=== PATIENT | male | born 1945 | race Caucasian/White ===

== ENCOUNTER 2016-07-31 05:06 | Inpatient (IN) | payer OTHER, MEDICARE ==
[~2016-07-31] VITALS: Ht 177.8 cm; Wt 69.3 kg
[2016-07-31] VITALS (8 sets, daily range): BP systolic 128–160; BP diastolic 56–91
[~2016-07-31 05:06] MED LIST: ADULT LOW DOSE81 M1 PO; ALDACTONE25 MG PO; ASPIR 8181 M1 PO; ASPIRIN E.C.81 M1 PO; DIGOX125 MCG PO; DIGOXIN125 MCG PO; DIGOXIN250 MCG PO; ELIQUIS5 MG PO; FERROUS SULFAT325 MG PO; FUROSEMIDE20 MG PO; FUROSEMIDE80 MG PO; GLIPIZIDE5 MG PO; GLUCOPHAGE500 MG PO; HABITROL,NICODER7 MG TD; HYDROCODON-ACE1 EAC7 PO; IMDUR30 MG PO; IMDUR60 MG PO; ISOSORBIDE DINI30 MG PO; LASIX20 MG PO; LASIX40 MG PO; LEVAQUIN500 MG PO; LEVOFLOXACIN750 MG PO; METOPROLOL SUC100 MG PO; METOPROLOL SUCC25 MG PO; NITROSTAT,NITR0.4 M1 SL; NITROSTAT0.4 MG SL; NORVASC5 MG PO; PLAVIX75 MG PO; PRAVACHOL40 MG PO; PRAVACHOL80 MG PO; PRINIVIL20 MG PO; PROAIR HFA8.5 GM IH; SALINE NOSE SPR45 M1 BOTH NARES; SPIRIVA RESPIMAT4 GM IH; SPIRONOLACTONE25 MG PO; TOPROL XL100 MG PO; TOPROL XL50 MG PO; Toprol XL PO; Tums PO; ZESTRIL20 MG PO; ZOFRAN4 MG PO; Zantac PO; Zestril,Prinivil PO
[2016-07-31 06:49] LABS: POINT-OF-CARE METER ID UU14174212
[2016-07-31 15:10] LABS: METH RESISTANT S AUREUS PCR NEGATIVE (NEGATIVE)
[2016-07-31 15:19] LABS: PROBE CHECK PASS; SPECIMEN PROCESSING CONTROL PASS
[2016-07-31 18:12] LABS: HEMATOCRIT 40.9 % (38.0-50.0); MCH 30.2 PG (29.0-34.0); MCHC 34.2 G/DL (30.0-36.0); MCV 88.1 FL (86-99); MEAN PLAT.VOLUME 12.1 uM^3 (9.0-12.4); PLATELET COUNT 195 K/uL (156-360); RBC DIS.WIDTH-CV 15.7 % (11.8-14.6); RBC DIS.WIDTH-SD 50.7 % (39-53); RED BLOOD COUNT 4.64 M/uL (4.00-5.50)
[2016-07-31 18:15] LABS: WHITE BLOOD COUNT 15.8 K/uL (4.1-10.2)
[2016-07-31 18:29] LABS: ANION GAP 10 MEQ/L (2-14); CHLORIDE 104 MEQ/L (99-109); GFR ESTIMATE (CALCULATED) > 59 mL/min/; SAMPLE HEMOLYSIS CHECK 1; SAMPLE ICTERIC CHECK 0; SAMPLE LIPEMIA CHECK 0; SODIUM 133 MEQ/L (136-147); UREA NITROGEN (BUN) 21 mg/dL (9-23)
[2016-07-31 19:00] LABS: GLUCOSE 143 mg/dL (70-99); POTASSIUM 5.9 MEQ/L (3.7-5.4)
[2016-08-01] VITALS (14 sets, daily range): BP systolic 122–144; BP diastolic 53–75
[2016-08-01 06:16] LABS: HEMATOCRIT 37.7 % (38.0-50.0); MCH 29.9 PG (29.0-34.0); MCHC 33.4 G/DL (30.0-36.0); MCV 89.3 FL (86-99); MEAN PLAT.VOLUME 11.9 uM^3 (9.0-12.4); PLATELET COUNT 202 K/uL (156-360); RBC DIS.WIDTH-CV 15.9 % (11.8-14.6); RBC DIS.WIDTH-SD 51.6 % (39-53); RED BLOOD COUNT 4.22 M/uL (4.00-5.50); WHITE BLOOD COUNT 11.9 K/uL (4.1-10.2)
[2016-08-01 06:45] LABS: ANION GAP 7 MEQ/L (2-14); CHLORIDE 101 MEQ/L (99-109); GFR ESTIMATE (CALCULATED) > 59 mL/min/; GLUCOSE 138 mg/dL (70-99); POTASSIUM 5.5 MEQ/L (3.7-5.4); SAMPLE HEMOLYSIS CHECK 0; SAMPLE ICTERIC CHECK 0; SAMPLE LIPEMIA CHECK 0; SODIUM 130 MEQ/L (136-147); UREA NITROGEN (BUN) 24 mg/dL (9-23)
[2016-08-01 08:16] LABS: POINT-OF-CARE METER ID UU14174217
[2016-08-01 16:03] LABS: POINT-OF-CARE METER ID UU13113803
[2016-08-02] VITALS (13 sets, daily range): BP systolic 123–167; BP diastolic 55–83
[2016-08-02 06:35] LABS: ANION GAP 7 MEQ/L (2-14); CHLORIDE 103 MEQ/L (99-109); GFR ESTIMATE (CALCULATED) > 59 mL/min/; GLUCOSE 108 mg/dL (70-99); POTASSIUM 4.7 MEQ/L (3.7-5.4); SAMPLE HEMOLYSIS CHECK 0; SAMPLE ICTERIC CHECK 0; SAMPLE LIPEMIA CHECK 0; SODIUM 132 MEQ/L (136-147); UREA NITROGEN (BUN) 19 mg/dL (9-23)
[2016-08-03 03:19] VITALS: BP 160/82
[2016-08-03 09:15] VITALS: BP 169/89
[2016-08-03 13:14] VITALS: BP 169/91
[2016-08-03 19:15] VITALS: BP 169/85
[2016-08-03 23:18] VITALS: BP 162/89
[2016-08-04 04:20] VITALS: BP 144/95
[2016-08-04 06:01] LABS: ANION GAP 9 MEQ/L (2-14); CHLORIDE 98 MEQ/L (99-109); GFR ESTIMATE (CALCULATED) > 59 mL/min/; GLUCOSE 136 mg/dL (70-99); POTASSIUM 4.8 MEQ/L (3.7-5.4); SAMPLE HEMOLYSIS CHECK 0; SAMPLE ICTERIC CHECK 0; SAMPLE LIPEMIA CHECK 0; SODIUM 130 MEQ/L (136-147); UREA NITROGEN (BUN) 14 mg/dL (9-23)
[2016-08-04 06:12] LABS: MCH 29.4 PG (29.0-34.0); MCV 86.4 FL (86-99); MEAN PLAT.VOLUME 12.4 uM^3 (9.0-12.4); PLATELET COUNT 196 K/uL (156-360); RBC DIS.WIDTH-CV 15.2 % (11.8-14.6); RBC DIS.WIDTH-SD 47.9 % (39-53); RED BLOOD COUNT 4.05 M/uL (4.00-5.50)
[2016-08-04 06:15] LABS: WHITE BLOOD COUNT 7.9 K/uL (4.1-10.2)
[2016-08-04 07:30] VITALS: BP 143/100
[2016-08-04 12:00] VITALS: BP 163/73
[2016-08-04 17:20] VITALS: BP 158/82
[2016-08-04 19:11] VITALS: BP 160/92
[2016-08-04 23:33] VITALS: BP 152/81
[2016-08-05 04:20] VITALS: BP 142/85
[2016-08-05 06:53] LABS: EOSINOPHIL (%) 0.7 % (0-5); EOSINOPHIL COUNT 0.1 K/uL (0-0.3); HEMATOCRIT 32.6 % (38.0-50.0); IMMATURE GRANULOCYTE (%) 0.1 % (0.0-0.7); LYMPHOCYTE COUNT 0.7 K/uL (1.0-2.8); MCHC 35.3 G/DL (30.0-36.0); MCV 85.1 FL (86-99); MEAN PLAT.VOLUME 12.3 uM^3 (9.0-12.4); MONOCYTE COUNT 0.6 K/uL (0-0.8); NEUTROPHIL (%) 78.8 % (45-76); NEUTROPHIL COUNT 5.3 K/uL (1.8-6.4); PLATELET COUNT 181 K/uL (156-360); RBC DIS.WIDTH-CV 15.1 % (11.8-14.6); RED BLOOD COUNT 3.83 M/uL (4.00-5.50); WHITE BLOOD COUNT 6.8 K/uL (4.1-10.2)
[2016-08-05 07:27] LABS: ANION GAP 11 MEQ/L (2-14); CHLORIDE 102 MEQ/L (99-109); GFR ESTIMATE (CALCULATED) > 59 mL/min/; GLUCOSE 108 mg/dL (70-99); POTASSIUM 4.5 MEQ/L (3.7-5.4); SAMPLE HEMOLYSIS CHECK 0; SAMPLE ICTERIC CHECK 0; SAMPLE LIPEMIA CHECK 0; SODIUM 130 MEQ/L (136-147); UREA NITROGEN (BUN) 18 mg/dL (9-23)
[2016-08-05 07:40] VITALS: BP 170/91
[2016-08-05 12:06] VITALS: BP 159/86
[2016-08-05 16:45] VITALS: BP 144/82
[2016-08-05 19:37] VITALS: BP 136/75
[2016-08-05 23:00] VITALS: BP 157/74
[2016-08-06 04:45] VITALS: BP 144/73
[2016-08-06 07:50] VITALS: BP 173/79
[2016-08-06] MEDS ORDERED: NORCO 5/3251 TABLET PO (09:09)
[2016-08-06 10:32] VITALS: BP 145/75
[2016-08-06 12:43] VITALS: BP 142/70
[2016-08-06 19:00] VITALS: BP 137/78
[2016-08-06 23:00] VITALS: BP 133/73
[2016-08-07 03:50] VITALS: BP 139/68
[2016-08-07 07:20] VITALS: BP 165/74
[2016-08-07] MEDS ORDERED: FLOMAX0.4 MG PO (10:42)
== END 2016-08-07 10:10 | disposition home health service (06) | DRG 329 ==
LOC: 2SOUTH → 4WEST 05:11 → 2SOUTH 05:11 → 4EAST 05:11 → 2SOUTH 09:16 → 4WEST 13:55 → SDC 14:20 → EDSTATUS 14:20 → 2SOUTH 14:21 → 4EAST 08-02 19:47
PROVIDERS: Internal Medicine; Physician Assistant Surgical; Surgery
PROC: 0D1N0Z4 Bypass Sigmoid Colon to Cutaneous, Open Approach (ICD-10-PCS; principal; 2016-07-31)
PROC: 0DTP0ZZ Resection of Rectum, Open Approach (ICD-10-PCS; principal; 2016-07-31)
PROC: 0T788DZ Dilation of Bilateral Ureters with Intraluminal Device, Via Natural or Artificial Opening Endoscopic (ICD-10-PCS; principal; 2016-07-31)
DX: C20 Malignant neoplasm of rectum (principal); G93.40 Encephalopathy, unspecified; I48.2 Chronic atrial fibrillation; E87.1 Hypo-osmolality and hyponatremia; I50.9 Heart failure, unspecified; I11.0 Hypertensive heart disease with heart failure; E11.9 Type 2 diabetes mellitus without complications; R31.9 Hematuria, unspecified; I25.10 Atherosclerotic heart disease of native coronary artery without angina pectoris; Z95.1 Presence of aortocoronary bypass graft; Z95.5 Presence of coronary angioplasty implant and graft; I73.9 Peripheral vascular disease, unspecified; E78.5 Hyperlipidemia, unspecified; Z90.2 Acquired absence of lung [part of]; Z85.118 Personal history of other malignant neoplasm of bronchus and lung; Z87.891 Personal history of nicotine dependence; T40.605A Adverse effect of unspecified narcotics, initial encounter
CPT/HCPCS: 36415; 70450; 80048; 81003; 82140; 82948; 84443; 85025; 85027; 85610 GA; 87641; 88309; 94640; 94640 76; 94760; 94799; 97530 GO; 99202; C1726; C1769; J0690; J1170; J1644; J2405; J3010; J3480; J7040; S0028

== ENCOUNTER 2016-09-03 10:51 | Day surgery (SDC) | payer OTHER, MEDICARE ==
[~2016-09-03] VITALS: Ht 177.8 cm; Wt 79.4 kg
[~2016-09-03 10:51] MED LIST changes: +FLOMAX0.4 MG PO; +NORCO 5/3251 TABLET PO
[2016-09-03 11:24] LABS: POINT-OF-CARE METER ID UU14174212
[2016-09-03 11:34] VITALS: BP 131/70
[2016-09-03] MEDS ORDERED: NORCO 5/3251 TABLET PO (13:22)
[2016-09-03 13:49] LABS: POINT-OF-CARE METER ID UU13113675
[2016-09-03 14:02] VITALS: BP 165/86
[2016-09-03 14:56] VITALS: BP 140/72
== END 2016-09-03 15:13 | disposition home or self-care (01) ==
LOC: SDC 10:51
PROVIDERS: Surgery
PROC: 02HV33Z Insertion of Infusion Device into Superior Vena Cava, Percutaneous Approach (ICD-10-PCS; principal; 2016-09-03)
DX: C20 Malignant neoplasm of rectum (principal); J45.909 Unspecified asthma, uncomplicated; Z79.51 Long term (current) use of inhaled steroids; I10 Essential (primary) hypertension; E11.9 Type 2 diabetes mellitus without complications
CPT/HCPCS: 71010; 82948; C1751; J0690; J2250; J2405; J3010

== ENCOUNTER 2016-09-16 00:46 | Observation (INO) | payer OTHER, MEDICARE ==
[~2016-09-16] VITALS: Ht 177.8 cm; Wt 73.5 kg
[2016-09-16 01:28] LABS: HEMATOCRIT 33.3 % (38.0-50.0); MCHC 34.2 G/DL (30.0-36.0); MCV 84.7 FL (86-99); MEAN PLAT.VOLUME 11.7 uM^3 (9.0-12.4); PLATELET COUNT 199 K/uL (156-360); RBC DIS.WIDTH-CV 14.9 % (11.8-14.6); RBC DIS.WIDTH-SD 45.1 % (39-53); RED BLOOD COUNT 3.93 M/uL (4.00-5.50); WHITE BLOOD COUNT 4.7 K/uL (4.1-10.2)
[2016-09-16 01:39] LABS: CHLORIDE 98 mEq/L (99-109); POTASSIUM 4.4 mEq/L (3.7-5.4); SODIUM 129 mEq/L (136-147)
[2016-09-16 01:41] LABS: GLUCOSE 106 mg/dL (70-99)
[2016-09-16 01:42] LABS: ANION GAP 11 MEQ/L (2-14); INTER. NORMALIZED RATIO 1.1; PROTHROMBIN TIME 11.4 (9.2-11.2); PTT 31.4 (25-32)
[2016-09-16 01:43] LABS: TOTAL BILIRUBIN 0.9 mg/dL (0.0-1.0)
[2016-09-16 01:45] LABS: ALKALINE PHOSPHATASE 146 IU/L (3-129); GFR ESTIMATE (CALCULATED) 58 mL/min/
[2016-09-16 01:46] LABS: DIRECT BILIRUBIN 0.4 mg/dL (0.0-0.3); UREA NITROGEN (BUN) 17 mg/dL (9-23)
[2016-09-16 01:48] LABS: LIPASE 12 U/L (1.0-51.0)
[2016-09-16 01:54] LABS: DIGOXIN 0.4 ng/mL (0.8-2.0)
[2016-09-16 02:22] LABS: ADD MIUA? NO; BILIRUBIN NEGATIVE; BLOOD NEGATIVE; COLOR YELLOW ((YELLOW)); GLUCOSE (STRIP) NEGATIVE; KETONES NEGATIVE; LEUKOCYTES NEGATIVE; NITRITE NEGATIVE; PROTEIN (STRIP) 30; SPECIFIC GRAVITY 1.005 (1.000-1.030); UCUL ADDED? NO; UROBILINOGEN 0.2 MG/DL (0.2-1.0)
[2016-09-16] MEDS ORDERED: METFORMIN HCL500 MG PO (02:37)
[2016-09-16] MEDS ORDERED: COMPAZINE10 MG PO (02:39)
[2016-09-16] MEDS ORDERED: ATIVAN0.5 MG PO (02:40)
[2016-09-16 06:24] VITALS: BP 167/70
[2016-09-16 07:07] VITALS: BP 166/78
[2016-09-16 12:06] VITALS: BP 147/68
[2016-09-16] MEDS ORDERED: LIDOCAINE-PRIL1 EACH TP (12:59)
[2016-09-16 17:28] LABS: POINT-OF-CARE METER ID UU14162513
[2016-09-16 17:33] VITALS: BP 142/80
[2016-09-16 20:13] VITALS: BP 132/59
[2016-09-16 21:27] LABS: POINT-OF-CARE METER ID UU13113831
[2016-09-16 23:30] VITALS: BP 141/65
[2016-09-17 04:00] VITALS: BP 150/76
[2016-09-17 06:45] LABS: ANION GAP 10 MEQ/L (2-14); CHLORIDE 100 MEQ/L (99-109); GFR ESTIMATE (CALCULATED) 58 mL/min/; GLUCOSE 95 mg/dL (70-99); POTASSIUM 4.5 MEQ/L (3.7-5.4); SAMPLE HEMOLYSIS CHECK 0; SAMPLE ICTERIC CHECK 0; SAMPLE LIPEMIA CHECK 0; SODIUM 134 MEQ/L (136-147); UREA NITROGEN (BUN) 21 mg/dL (9-23)
[2016-09-17 07:31] VITALS: BP 144/76
[2016-09-17 12:23] VITALS: BP 156/79
[2016-09-17 12:34] LABS: POINT-OF-CARE METER ID UU13113700
== END 2016-09-17 13:12 | disposition home or self-care (01) ==
LOC: EME → EDBD 00:46 → 5WEST 05:05 → EDOF 05:05 → 5WEST 05:55
PROVIDERS: Emergency Medicine; Hospitalist; Nurse Practitioner Adult Health
DX: I50.23 Acute on chronic systolic (congestive) heart failure (principal); C20 Malignant neoplasm of rectum; Z92.21 Personal history of antineoplastic chemotherapy; Z92.3 Personal history of irradiation; I48.2 Chronic atrial fibrillation; Z79.01 Long term (current) use of anticoagulants; I25.10 Atherosclerotic heart disease of native coronary artery without angina pectoris; Z95.5 Presence of coronary angioplasty implant and graft; E78.5 Hyperlipidemia, unspecified; I13.0 Hypertensive heart and chronic kidney disease with heart failure and stage 1 through stage 4 chronic kidney disease, or unspecified chronic kidney disease; E11.22 Type 2 diabetes mellitus with diabetic chronic kidney disease; N18.9 Chronic kidney disease, unspecified; I73.9 Peripheral vascular disease, unspecified; Z85.118 Personal history of other malignant neoplasm of bronchus and lung; E87.1 Hypo-osmolality and hyponatremia; Z86.73 Personal history of transient ischemic attack (TIA), and cerebral infarction without residual deficits; Z93.3 Colostomy status; F17.210 Nicotine dependence, cigarettes, uncomplicated; Z88.1 Allergy status to other antibiotic agents
CPT/HCPCS: 71020; 77412; 80048; 80076; 80162; 81003; 82948; 83605; 83690; 83880; 85027; 85610; 85730; 87040; 93005; 94640; 99281; 99285; G0378; J1815; J1940

== ENCOUNTER 2016-10-31 18:41 | Inpatient (IN) | payer OTHER, MEDICARE ==
[~2016-10-31] VITALS: Ht 175.3 cm; Wt 75.0 kg
[~2016-10-31 18:41] MED LIST changes: +ATIVAN0.5 MG PO; +COMPAZINE10 MG PO; +LIDOCAINE-PRIL1 EACH TP; +METFORMIN HCL500 MG PO
[2016-10-31 18:53] LABS: HEMATOCRIT 31.8 % (38.0-50.0); MCH 30.2 PG (29.0-34.0); MCHC 35.8 G/DL (30.0-36.0); MEAN PLAT.VOLUME 10.7 uM^3 (9.0-12.4); RBC DIS.WIDTH-CV 18.2 % (11.8-14.6); RBC DIS.WIDTH-SD 54.7 % (39-53); RED BLOOD COUNT 3.77 M/uL (4.00-5.50)
[2016-10-31 19:06] LABS: CHLORIDE 94 mEq/L (99-109); POTASSIUM 4.6 mEq/L (3.7-5.4); SODIUM 124 mEq/L (136-147)
[2016-10-31 19:08] LABS: GLUCOSE 84 mg/dL (70-99)
[2016-10-31 19:09] LABS: ANION GAP 15 MEQ/L (2-14)
[2016-10-31 19:12] LABS: GFR ESTIMATE (CALCULATED) 18 mL/min/; UREA NITROGEN (BUN) 55 mg/dL (9-23)
[2016-10-31 19:20] LABS: TROP-I INTERPRETATION POSITIVE; TROPONIN-I 1.61 ng/mL (0.0-0.30)
[2016-10-31 19:28] LABS: MCV 84.4 FL (86-99); PLATELET COUNT 192 K/uL (156-360); WHITE BLOOD COUNT 17.6 K/uL (4.1-10.2)
[2016-10-31 19:40] LABS: PLAT.SUFFICIENCY ADEQUATE
[2016-10-31 20:08] LABS: TOTAL BILIRUBIN 1.1 mg/dL (0.0-1.0)
[2016-10-31 20:09] LABS: ALKALINE PHOSPHATASE 137 IU/L (3-129)
[2016-10-31 20:12] LABS: DIRECT BILIRUBIN 0.8 mg/dL (0.0-0.3)
[2016-10-31 21:39] LABS: ADD MIUA? YES; BILIRUBIN NEGATIVE; BLOOD LARGE; COLOR AMBER ((YELLOW)); GLUCOSE (STRIP) NEGATIVE; KETONES NEGATIVE; LEUKOCYTES LARGE; NITRITE NEGATIVE; PROTEIN (STRIP) 100; UROBILINOGEN 0.2 MG/DL (0.2-1.0)
[2016-10-31] MEDS ORDERED: FUROSEMIDE40 MG PO (21:57)
[2016-10-31] MEDS ORDERED: ENTRESTO 24 MG1 EACH PO (21:58)
[2016-10-31] MEDS ORDERED: ELIQUIS5 MG PO (21:59)
[2016-10-31] MEDS ORDERED: FERROUS SULFAT325 MG PO (22:00)
[2016-10-31 22:30] LABS: DIGOXIN 0.9 ng/mL (0.8-2.0)
[2016-10-31 23:39] LABS: WHITE BLOOD CELLS TNTC /HPF (0-5)
[2016-11-01 04:17] LABS: TROP-I INTERPRETATION POSITIVE
[2016-11-01 06:26] LABS: MCH 30.3 PG (29.0-34.0); MCV 86.5 FL (86-99); MEAN PLAT.VOLUME 11.3 uM^3 (9.0-12.4); PLATELET COUNT 158 K/uL (156-360); RBC DIS.WIDTH-CV 18.5 % (11.8-14.6); RBC DIS.WIDTH-SD 57.1 % (39-53); RED BLOOD COUNT 3.47 M/uL (4.00-5.50); WHITE BLOOD COUNT 15.8 K/uL (4.1-10.2)
[2016-11-01 06:38] LABS: CHLORIDE 97 mEq/L (99-109); POTASSIUM 4.6 mEq/L (3.7-5.4); SODIUM 125 mEq/L (136-147)
[2016-11-01 06:45] LABS: ANION GAP 12 MEQ/L (2-14)
[2016-11-01 06:47] LABS: GFR ESTIMATE (CALCULATED) 18 mL/min/
[2016-11-01 06:48] LABS: UREA NITROGEN (BUN) 59 mg/dL (9-23)
[2016-11-01 06:51] LABS: GLUCOSE 101 mg/dL (70-99)
[2016-11-01 07:12] LABS: POINT-OF-CARE METER ID UU13113702
[2016-11-01 07:23] LABS: ABS NEUTROPHIL COUNT 15.4; ANISOCYTOSIS 2+; BAND NEUTROPHILS 20.2 % (0-8.0); BURR CELLS 2+; EOSINOPHIL ABS CT 0; INSTRUMENT ABS NEUTROPHIL CT 14.1 K/uL; MACROCYTES 2+; OVALOCYTES 1+; PLAT.SUFFICIENCY ADEQUATE; POIKILOCYTOSIS 3+; SEG.NEUTROPHILS 77.2 % (46.0-76.0)
[2016-11-01 11:20] LABS: TROP-I INTERPRETATION POSITIVE; TROPONIN-I 0.71 ng/mL (0.0-0.30)
[2016-11-01 12:18] LABS: POINT-OF-CARE METER ID UU13113702
[2016-11-01 15:25] VITALS: BP 134/62
[2016-11-01 15:30] VITALS: BP 134/62
[2016-11-01 19:05] LABS: GLUCOSE 147 mg/dL (70-99)
[2016-11-01 20:20] VITALS: BP 111/57
[2016-11-01 23:50] VITALS: BP 124/63
[2016-11-02 04:06] VITALS: BP 115/64
[2016-11-02 06:43] LABS: HEMATOCRIT 31.9 % (38.0-50.0); MCH 30.1 PG (29.0-34.0); MCHC 34.8 G/DL (30.0-36.0); MCV 86.4 FL (86-99); MEAN PLAT.VOLUME 12.1 uM^3 (9.0-12.4); PLATELET COUNT 136 K/uL (156-360); RBC DIS.WIDTH-CV 18.6 % (11.8-14.6); RBC DIS.WIDTH-SD 57.5 % (39-53); RED BLOOD COUNT 3.69 M/uL (4.00-5.50); WHITE BLOOD COUNT 12.4 K/uL (4.1-10.2)
[2016-11-02 07:09] LABS: ANION GAP 14 MEQ/L (2-14); CHLORIDE 95 MEQ/L (99-109); GLUCOSE 126 mg/dL (70-99); SAMPLE HEMOLYSIS CHECK 1; SAMPLE ICTERIC CHECK 0; SAMPLE LIPEMIA CHECK 0; SODIUM 124 MEQ/L (136-147); UREA NITROGEN (BUN) 71 mg/dL (9-23)
[2016-11-02 07:19] LABS: GFR ESTIMATE (CALCULATED) 14 mL/min/; POTASSIUM 4.7 MEQ/L (3.7-5.4)
[2016-11-02 07:46] LABS: POINT-OF-CARE METER ID UU13113781
[2016-11-02 09:11] VITALS: BP 124/52
[2016-11-02 13:20] VITALS: BP 133/82
[2016-11-02 16:00] VITALS: BP 145/85
[2016-11-02 19:41] VITALS: BP 133/58
[2016-11-02 22:39] LABS: POINT-OF-CARE METER ID UU14174216; POINT-OF-CARE USER ID 608261316
[2016-11-02 23:30] VITALS: BP 129/58
[2016-11-03 04:30] VITALS: BP 107/53
[2016-11-03 06:34] LABS: HEMATOCRIT 30.3 % (38.0-50.0); MCH 30.2 PG (29.0-34.0); MCV 83.9 FL (86-99); MEAN PLAT.VOLUME 12.9 uM^3 (9.0-12.4); PLATELET COUNT 120 K/uL (156-360); RBC DIS.WIDTH-CV 18.4 % (11.8-14.6); RBC DIS.WIDTH-SD 55.8 % (39-53); RED BLOOD COUNT 3.61 M/uL (4.00-5.50); WHITE BLOOD COUNT 13.2 K/uL (4.1-10.2)
[2016-11-03 07:12] LABS: ANION GAP 14 MEQ/L (2-14); CHLORIDE 95 MEQ/L (99-109); GFR ESTIMATE (CALCULATED) 14 mL/min/; GLUCOSE 102 mg/dL (70-99); POTASSIUM 4.6 MEQ/L (3.7-5.4); SAMPLE HEMOLYSIS CHECK 0; SAMPLE ICTERIC CHECK 0; SAMPLE LIPEMIA CHECK 0; SODIUM 124 MEQ/L (136-147); UREA NITROGEN (BUN) 82 mg/dL (9-23)
[2016-11-03 07:35] LABS: ANISOCYTOSIS 3+; BAND NEUTROPHILS 0.9 % (0-8.0); BURR CELLS 2+; EOSINOPHIL ABS CT 0; HYPOCHROMASIA 1+; INSTRUMENT ABS NEUTROPHIL CT 12.1 K/uL; LYMPHOCYTES 0.9 % (15.0-45.0); MACROCYTES 2+; PLAT.SUFFICIENCY DECREASED; POIKILOCYTOSIS 3+; POLYCHROMASIA 1+; TOX.VACUOLIZATION 1+; TOXIC GRANULATION 2+
[2016-11-03 07:45] LABS: SEG.NEUTROPHILS 97.3 % (46.0-76.0)
[2016-11-03 08:02] LABS: POINT-OF-CARE METER ID UU13113781
[2016-11-03 08:11] VITALS: BP 154/59
[2016-11-03 09:13] LABS: POINT-OF-CARE METER ID UU13113781
[2016-11-03 10:48] LABS: POINT-OF-CARE METER ID UU14174216
[2016-11-03 17:00] VITALS: BP 123/75
[2016-11-03 21:00] VITALS: BP 132/78
[2016-11-03 23:29] VITALS: BP 127/88
[2016-11-04 04:21] VITALS: BP 104/58
[2016-11-04 07:37] LABS: ANION GAP 13 MEQ/L (2-14); CHLORIDE 93 MEQ/L (99-109); GFR ESTIMATE (CALCULATED) 13 mL/min/; GLUCOSE 114 mg/dL (70-99); POTASSIUM 4.4 MEQ/L (3.7-5.4); SAMPLE HEMOLYSIS CHECK 0; SAMPLE ICTERIC CHECK 0; SAMPLE LIPEMIA CHECK 0; SODIUM 125 MEQ/L (136-147); UREA NITROGEN (BUN) 80 mg/dL (9-23)
[2016-11-04 07:50] VITALS: BP 121/64
[2016-11-04 11:30] LABS: POINT-OF-CARE METER ID UU13113781
[2016-11-04 12:55] VITALS: BP 145/62
[2016-11-04 13:16] LABS: GLUCOSE 180 mg/dL (70-99)
[2016-11-04 15:02] VITALS: BP 120/55
[2016-11-04 20:16] VITALS: BP 131/67
[2016-11-05] VITALS (7 sets, daily range): BP systolic 118–140; BP diastolic 58–79
[2016-11-05 07:24] LABS: ANION GAP 11 MEQ/L (2-14); CHLORIDE 90 MEQ/L (99-109); GFR ESTIMATE (CALCULATED) 14 mL/min/; GLUCOSE 123 mg/dL (70-99); POTASSIUM 4.1 MEQ/L (3.7-5.4); SAMPLE HEMOLYSIS CHECK 0; SAMPLE ICTERIC CHECK 0; SAMPLE LIPEMIA CHECK 0; SODIUM 122 MEQ/L (136-147); UREA NITROGEN (BUN) 83 mg/dL (9-23)
[2016-11-05 09:49] LABS: GLUCOSE 125 mg/dL (70-99)
[2016-11-05 11:54] LABS: POINT-OF-CARE METER ID UU14174216
[2016-11-05 14:32] LABS: POINT-OF-CARE METER ID UU13113781
[2016-11-05 16:33] LABS: POINT-OF-CARE METER ID UU14174216
[2016-11-06 04:00] VITALS: BP 131/65
[2016-11-06 07:50] LABS: POINT-OF-CARE METER ID UU14174216
[2016-11-06 08:00] VITALS: BP 135/64
[2016-11-06 10:08] LABS: ANION GAP 10 MEQ/L (2-14); CHLORIDE 93 MEQ/L (99-109); POTASSIUM 4.2 MEQ/L (3.7-5.4); SAMPLE HEMOLYSIS CHECK 0; SAMPLE ICTERIC CHECK 0; SAMPLE LIPEMIA CHECK 0; SODIUM 128 MEQ/L (136-147)
[2016-11-06 10:13] LABS: GFR ESTIMATE (CALCULATED) 15 mL/min/; GLUCOSE 129 mg/dL (70-99); UREA NITROGEN (BUN) 78 mg/dL (9-23)
[2016-11-06 10:55] VITALS: BP 139/59
[2016-11-06 11:06] LABS: POINT-OF-CARE METER ID UU14174216
[2016-11-06 16:12] LABS: POINT-OF-CARE METER ID UU14174216
[2016-11-06 16:48] VITALS: BP 128/60
[2016-11-06 19:39] VITALS: BP 135/66
[2016-11-07] VITALS (7 sets, daily range): BP systolic 126–137; BP diastolic 59–72
[2016-11-07 07:20] LABS: ANION GAP 11 MEQ/L (2-14); CHLORIDE 92 MEQ/L (99-109); GFR ESTIMATE (CALCULATED) 15 mL/min/; GLUCOSE 117 mg/dL (70-99); POTASSIUM 3.7 MEQ/L (3.7-5.4); SAMPLE HEMOLYSIS CHECK 0; SAMPLE ICTERIC CHECK 0; SAMPLE LIPEMIA CHECK 0; SODIUM 126 MEQ/L (136-147); UREA NITROGEN (BUN) 74 mg/dL (9-23)
[2016-11-07 08:00] LABS: POINT-OF-CARE USER ID ENVKC36
[2016-11-07 12:06] LABS: POINT-OF-CARE USER ID ENVKC36
[2016-11-07 17:00] LABS: POINT-OF-CARE METER ID UU14174216
[2016-11-08 04:00] VITALS: BP 134/65
[2016-11-08 07:19] LABS: ANION GAP 11 MEQ/L (2-14); CHLORIDE 94 MEQ/L (99-109); GFR ESTIMATE (CALCULATED) 18 mL/min/; GLUCOSE 101 mg/dL (70-99); POTASSIUM 3.8 MEQ/L (3.7-5.4); SAMPLE HEMOLYSIS CHECK 0; SAMPLE ICTERIC CHECK 0; SAMPLE LIPEMIA CHECK 0; SODIUM 129 MEQ/L (136-147); UREA NITROGEN (BUN) 68 mg/dL (9-23)
[2016-11-08 08:00] VITALS: BP 125/63
[2016-11-08 08:12] LABS: POINT-OF-CARE METER ID UU14174216
[2016-11-08 11:17] VITALS: BP 129/60
[2016-11-08 11:36] LABS: POINT-OF-CARE METER ID UU14174216; POINT-OF-CARE USER ID NUTSLF44
[2016-11-08 15:50] VITALS: BP 125/58
[2016-11-08] MEDS ORDERED: ELIQUIS2.5 MG PO (16:17)
[2016-11-08 16:32] LABS: POINT-OF-CARE METER ID UU14174216; POINT-OF-CARE USER ID NUTSLF44
== END 2016-11-08 19:00 | disposition home or self-care (01) | DRG 871 ==
LOC: EME 18:41 → EDOF 20:00 → 4EAST 11-01 15:21
PROVIDERS: Emergency Medicine; Internal Medicine; Internal Medicine Nephrology
DX: A41.89 Other specified sepsis (principal); N39.0 Urinary tract infection, site not specified; N17.0 Acute kidney failure with tubular necrosis; I21.4 Non-ST elevation (NSTEMI) myocardial infarction; E87.2 Acidosis; E22.2 Syndrome of inappropriate secretion of antidiuretic hormone; C20 Malignant neoplasm of rectum; I13.0 Hypertensive heart and chronic kidney disease with heart failure and stage 1 through stage 4 chronic kidney disease, or unspecified chronic kidney disease; I50.22 Chronic systolic (congestive) heart failure; E11.22 Type 2 diabetes mellitus with diabetic chronic kidney disease; N18.3 Chronic kidney disease, stage 3 (moderate); I48.2 Chronic atrial fibrillation; I25.10 Atherosclerotic heart disease of native coronary artery without angina pectoris; E78.5 Hyperlipidemia, unspecified; F17.210 Nicotine dependence, cigarettes, uncomplicated; Z95.1 Presence of aortocoronary bypass graft; Z93.3 Colostomy status; Z85.118 Personal history of other malignant neoplasm of bronchus and lung; Z91.040 Latex allergy status; Z90.2 Acquired absence of lung [part of]; Z88.1 Allergy status to other antibiotic agents; Z79.82 Long term (current) use of aspirin; I25.2 Old myocardial infarction; E86.0 Dehydration; I73.9 Peripheral vascular disease, unspecified; R79.89 Other specified abnormal findings of blood chemistry; R33.9 Retention of urine, unspecified; Z95.5 Presence of coronary angioplasty implant and graft; Z79.01 Long term (current) use of anticoagulants
CPT/HCPCS: 71020; 74176; 76770; 80048; 80069; 80076; 80162; 81003; 82533 91; 82948; 83605; 83935; 84100; 84300; 84484; 84999; 85025; 85027; 87040; 87077; 87086; 87186; 87801; 93005; 99281; 99285; J0696; J1815; J1940; J2270; J2405; J2543; J7030; J7042; J7050; J7070

== ENCOUNTER 2016-11-18 12:44 | Observation (INO) | payer OTHER, MEDICARE ==
[~2016-11-18] VITALS: Ht 175.3 cm; Wt 71.5 kg
[~2016-11-18 12:44] MED LIST changes: +ELIQUIS2.5 MG PO; +ENTRESTO 24 MG1 EACH PO; +FUROSEMIDE40 MG PO
[2016-11-18 14:34] LABS: MCHC 33.4 G/DL (30.0-36.0); MCV 89.8 FL (86-99); MEAN PLAT.VOLUME 11.3 uM^3 (9.0-12.4); PLATELET COUNT 255 K/uL (156-360); RBC DIS.WIDTH-SD 65.1 % (39-53); RED BLOOD COUNT 3.23 M/uL (4.00-5.50)
[2016-11-18 14:37] LABS: CHLORIDE 98 mEq/L (99-109); SODIUM 131 mEq/L (136-147)
[2016-11-18 14:38] LABS: GLUCOSE 90 mg/dL (70-99)
[2016-11-18 14:40] LABS: ANION GAP 14 MEQ/L (2-14)
[2016-11-18 14:42] LABS: GFR ESTIMATE (CALCULATED) 33 mL/min/
[2016-11-18 14:43] LABS: UREA NITROGEN (BUN) 38 mg/dL (9-23)
[2016-11-18 14:50] LABS: TROP-I INTERPRETATION NEGATIVE; TROPONIN-I 0.02 ng/mL (0.0-0.30)
[2016-11-18 15:24] LABS: D-DIMER ELISA 2.84 mg/L FEU (< 0.57)
[2016-11-18 22:26] VITALS: BP 110/73
[2016-11-18 23:38] LABS: TROP-I INTERPRETATION NEGATIVE; TROPONIN-I 0.02 ng/mL (0.0-0.30)
[2016-11-19 00:36] VITALS: BP 109/56
[2016-11-19 07:15] VITALS: BP 121/60
[2016-11-19 08:55] LABS: HEMATOCRIT 23.2 % (38.0-50.0); MCH 29.5 PG (29.0-34.0); MCHC 33.2 G/DL (30.0-36.0); MCV 88.9 FL (86-99); MEAN PLAT.VOLUME 11.1 uM^3 (9.0-12.4); PLATELET COUNT 219 K/uL (156-360); RBC DIS.WIDTH-SD 65.1 % (39-53); RED BLOOD COUNT 2.61 M/uL (4.00-5.50); WHITE BLOOD COUNT 4.3 K/uL (4.1-10.2)
[2016-11-19 09:06] LABS: TROP-I INTERPRETATION NEGATIVE; TROPONIN-I 0.02 ng/mL (0.0-0.30)
[2016-11-19 09:14] LABS: ANION GAP 9 MEQ/L (2-14); CHLORIDE 101 MEQ/L (99-109); GFR ESTIMATE (CALCULATED) 40 mL/min/; GLUCOSE 88 mg/dL (70-99); POTASSIUM 4.2 MEQ/L (3.7-5.4); SAMPLE HEMOLYSIS CHECK 0; SAMPLE ICTERIC CHECK 0; SAMPLE LIPEMIA CHECK 0; SODIUM 132 MEQ/L (136-147); UREA NITROGEN (BUN) 36 mg/dL (9-23)
[2016-11-19 11:13] VITALS: BP 124/71
[2016-11-19 11:13] LABS: MCV 89.9 FL (86-99)
== END 2016-11-19 14:11 | disposition home or self-care (01) ==
LOC: EME 12:44 → 5WEST 21:16 → EDOF 21:16 → 5WEST 22:13
PROVIDERS: Hospitalist; Internal Medicine
DX: R07.89 Other chest pain (principal); N17.9 Acute kidney failure, unspecified; I12.9 Hypertensive chronic kidney disease with stage 1 through stage 4 chronic kidney disease, or unspecified chronic kidney disease; N18.9 Chronic kidney disease, unspecified; I48.2 Chronic atrial fibrillation; I25.10 Atherosclerotic heart disease of native coronary artery without angina pectoris; I25.5 Ischemic cardiomyopathy; D63.1 Anemia in chronic kidney disease; E11.9 Type 2 diabetes mellitus without complications; R33.9 Retention of urine, unspecified; E78.5 Hyperlipidemia, unspecified; F17.200 Nicotine dependence, unspecified, uncomplicated; Z95.5 Presence of coronary angioplasty implant and graft; Z95.1 Presence of aortocoronary bypass graft; Z85.118 Personal history of other malignant neoplasm of bronchus and lung; Z85.048 Personal history of other malignant neoplasm of rectum, rectosigmoid junction, and anus
CPT/HCPCS: 71020; 78582; 80048; 84484; 85014; 85018; 85027; 85379; 93005; 94640; 99202; 99281; 99285; A9540; A9567; G0378

== ENCOUNTER 2016-12-13 14:35 | Inpatient (IN) | payer OTHER, MEDICARE ==
[~2016-12-13] VITALS: Ht 175.3 cm; Wt 76.7 kg
[2016-12-13 16:02] LABS: EOSINOPHIL (%) 1.1 % (0-5); EOSINOPHIL COUNT 0.1 K/uL (0-0.3); HEMATOCRIT 24.8 % (38.0-50.0); IMMATURE GRANULOCYTE (%) 0.6 % (0.0-0.7); INSTRUMENT ABS NEUTROPHIL CT 4.2 K/uL; LYMPHOCYTE COUNT 0.6 K/uL (1.0-2.8); MCH 29.3 PG (29.0-34.0); MCHC 33.1 G/DL (30.0-36.0); MCV 88.6 FL (86-99); MEAN PLAT.VOLUME 10.3 uM^3 (9.0-12.4); MONOCYTE (%) 7.9 % (3-12); MONOCYTE COUNT 0.4 K/uL (0-0.8); NEUTROPHIL (%) 78.5 % (45-76); NEUTROPHIL COUNT 4.2 K/uL (1.8-6.4); PLATELET COUNT 255 K/uL (156-360); RBC DIS.WIDTH-CV 17.7 % (11.8-14.6); RBC DIS.WIDTH-SD 57.7 % (39-53); WHITE BLOOD COUNT 5.3 K/uL (4.1-10.2)
[2016-12-13 16:12] LABS: CHLORIDE 99 mEq/L (99-109); POTASSIUM 4.6 mEq/L (3.7-5.4); SODIUM 128 mEq/L (136-147)
[2016-12-13 16:15] LABS: GLUCOSE 104 mg/dL (70-99)
[2016-12-13 16:16] LABS: ANION GAP 10 MEQ/L (2-14)
[2016-12-13 16:18] LABS: ALKALINE PHOSPHATASE 157 IU/L (3-129); GFR ESTIMATE (CALCULATED) 31 mL/min/
[2016-12-13 16:19] LABS: UREA NITROGEN (BUN) 36 mg/dL (9-23)
[2016-12-13 16:24] LABS: TROP-I INTERPRETATION NEGATIVE; TROPONIN-I 0.02 ng/mL (0.0-0.30)
[2016-12-13] MEDS ORDERED: FERROUS SULFAT325 MG PO (17:10)
[2016-12-13] MEDS ORDERED: TOPROL XL25 MG PO (17:11)
[2016-12-13] MEDS ORDERED: ENTRESTO 24 MG1 EACH PO (17:13)
[2016-12-13] MEDS ORDERED: BUMETANIDE1 MG PO (17:14)
[2016-12-13] MEDS ORDERED: SPIRIVA1 INHALATI IH (17:32)
[2016-12-13] MEDS ORDERED: TAMSULOSIN HCL0.4 MG PO (17:33)
[2016-12-13 20:45] VITALS: BP 127/59
[2016-12-13 23:00] VITALS: BP 112/63
[2016-12-13 23:46] LABS: CREATINE KINASE 35 IU/L (1-294); TOTAL CK 35 IU/L (1-294); TROP-I INTERPRETATION NEGATIVE; TROPONIN-I 0.02 ng/mL (0.0-0.30)
[2016-12-13 23:47] LABS: CK-MB 1.6 ng/mL (0.0-4.9)
[2016-12-14 03:15] VITALS: BP 114/68
[2016-12-14 04:25] VITALS: BP 120/59
[2016-12-14 06:38] LABS: HEMATOCRIT 29.6 % (38.0-50.0); MCH 30.6 PG (29.0-34.0); MCHC 30.1 G/DL (30.0-36.0); MCV 101.7 FL (86-99); MEAN PLAT.VOLUME 11.3 uM^3 (9.0-12.4); NRBC (%) 1.4 /100 WBC (0-0); PLATELET COUNT 207 K/uL (156-360); RBC DIS.WIDTH-CV 17.9 % (11.8-14.6); RED BLOOD COUNT 2.91 M/uL (4.00-5.50); WHITE BLOOD COUNT 7.8 K/uL (4.1-10.2)
[2016-12-14 06:42] LABS: INTER. NORMALIZED RATIO 1.5; PROTHROMBIN TIME 15.5 (9.2-11.2)
[2016-12-14 06:48] LABS: HEMATOCRIT 29.5 % (38.0-50.0); MCH 30.5 PG (29.0-34.0); MCHC 30.2 G/DL (30.0-36.0); MEAN PLAT.VOLUME 11.1 uM^3 (9.0-12.4); PLATELET COUNT 215 K/uL (156-360); RBC DIS.WIDTH-CV 17.8 % (11.8-14.6); RBC DIS.WIDTH-SD 66.4 % (39-53); RED BLOOD COUNT 2.92 M/uL (4.00-5.50); WHITE BLOOD COUNT 8.1 K/uL (4.1-10.2)
[2016-12-14 06:55] LABS: TROP-I INTERPRETATION NEGATIVE
[2016-12-14 06:56] LABS: TROPONIN-I 0.04 ng/mL (0.0-0.30)
[2016-12-14 07:05] LABS: ANISOCYTOSIS 2+; ATYPICAL LYMPHOCYTE 4.5 %; BAND NEUTROPHILS 7.1 % (0-8.0); BASOPHILS 0.9 %; BURR CELLS 2+; EOSINOPHIL ABS CT 0.3; EOSINOPHILS 3.6 % (0-5.0); INSTRUMENT ABS NEUTROPHIL CT 2.3 K/uL; LYMPHOCYTES 43.7 % (15.0-45.0); MACROCYTES 1+; METAMYELOCYTES 2.7 %; MYELOCYTES 3.6 %; NUCLEATED RBC'S 0.9; PLAT.SUFFICIENCY ADEQUATE; POIKILOCYTOSIS 2+; SEG.NEUTROPHILS 29.5 % (46.0-76.0); SPHEROCYTES 1+
[2016-12-14 07:24] LABS: ABS NEUTROPHIL COUNT 3.1; ANISOCYTOSIS 2+; ATYPICAL LYMPHOCYTE 1.9 %; BAND NEUTROPHILS 7.4 % (0-8.0); EOSINOPHIL ABS CT 0.1; EOSINOPHILS 0.9 % (0-5.0); INSTRUMENT ABS NEUTROPHIL CT 2.3 K/uL; LYMPHOCYTES 41.7 % (15.0-45.0); MACROCYTES 1+; METAMYELOCYTES 2.8 %; MYELOCYTES 0.9 %; NUCLEATED RBC'S 0.9; PLAT.SUFFICIENCY ADEQUATE; POIKILOCYTOSIS 2+; SEG.NEUTROPHILS 32.4 % (46.0-76.0); SPHEROCYTES 1+
[2016-12-14 09:36] LABS: METH RESISTANT S AUREUS PCR NEGATIVE (NEGATIVE)
[2016-12-14 09:38] LABS: PROBE CHECK PASS; SPECIMEN PROCESSING CONTROL PASS
== END 2016-12-14 09:14 | DRG 291 ==
LOC: EME → EDBD 14:35 → EDOF 16:48 → 4EAST 19:07 → 4WEST 19:07 → EDOF 19:07 → 4EAST 20:37 → 4WEST 12-14 05:05
PROVIDERS: Emergency Medicine; Internal Medicine; Psychiatry & Neurology Neurology
PROC: 5A12012 Performance of Cardiac Output, Single, Manual (ICD-10-PCS; principal; 2016-12-14)
PROC: 0BH17EZ Insertion of Endotracheal Airway into Trachea, Via Natural or Artificial Opening (ICD-10-PCS; 2016-12-14)
DX: I50.20 Unspecified systolic (congestive) heart failure (principal); J96.91 Respiratory failure, unspecified with hypoxia; I46.9 Cardiac arrest, cause unspecified; Z85.048 Personal history of other malignant neoplasm of rectum, rectosigmoid junction, and anus; I48.91 Unspecified atrial fibrillation; E87.1 Hypo-osmolality and hyponatremia; J90 Pleural effusion, not elsewhere classified; Z86.74 Personal history of sudden cardiac arrest; E11.8 Type 2 diabetes mellitus with unspecified complications; I48.2 Chronic atrial fibrillation; E78.5 Hyperlipidemia, unspecified; I13.0 Hypertensive heart and chronic kidney disease with heart failure and stage 1 through stage 4 chronic kidney disease, or unspecified chronic kidney disease; D64.9 Anemia, unspecified; E11.22 Type 2 diabetes mellitus with diabetic chronic kidney disease; R07.9 Chest pain, unspecified; I25.10 Atherosclerotic heart disease of native coronary artery without angina pectoris; N18.3 Chronic kidney disease, stage 3 (moderate); Z85.118 Personal history of other malignant neoplasm of bronchus and lung; Z87.891 Personal history of nicotine dependence; Z95.5 Presence of coronary angioplasty implant and graft
CPT/HCPCS: 36415; 71020; 80053; 80069; 81003; 82272; 82550; 82553; 83540; 83605; 83735; 84466; 84484; 85025; 85025 91; 85610; 85730; 87641; 93005; 94002; 99202; 99281; 99285; J0171; J0282; J0461; J2270; J2405; J7050